=== PATIENT | female | born 1985 | race Caucasian/White ===

== ENCOUNTER 2021-02-28 10:30 | Outpatient (CLI) | payer OTHER, SELFPAY ==
--- NOTE | ~2021-02-28 | US_ITS ---
EXAMINATION: US breast RT limited HISTORY: Palpable abnormality in the upper inner quadrant right breast. TECHNIQUE: Limited high-resolution right breast ultrasound was performed. COMPARISON: 03/03/2016 FINDINGS: There is a 5 mm x 4 mm oval, circumscribed, parallel, hypoechoic mass with no posterior fea tures or internal vascularity at the 2:00 location 6 cm from the nipple. This is slightly increased i n size since the 2015 comparison. IMPRESSION: Probably benign right breast mass. Follow-up targeted right breast ultrasound in six months is recomm ended. BI-RADS category 3, probably benign findings. Reviewed, dictated and finalized at location A. 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 Follow-up targeted right breast ultrasound i n six months is recommended. BI-RADS category 3, probably benign findings.
== END 2021-02-28 10:31 | disposition home or self-care (01) ==
PROVIDERS: PCP Family Medicine; Visit Provider Family Medicine
DX: N63.0 Unspecified lump in unspecified breast (principal); R92.8 Other abnormal and inconclusive findings on diagnostic imaging of breast
CPT/HCPCS: 76642

== ENCOUNTER 2021-10-27 11:48 | Outpatient (CLI) | payer OTHER, SELFPAY ==
--- NOTE | ~2021-10-27 | US_ITS ---
EXAMINATION: US breast BI limited HISTORY: Six-month follow-up for probably benign right breast mass and palpable lump of the upper out er left breast. TECHNIQUE: Limited bilateral breast ultrasound was performed. COMPARISON: 02/28/2021 FINDINGS: There is a stable 5 mm x 2 mm oval, circumscribed, parallel, hypoechoic mass with no synthetic cloth binding cutter ior features or internal vascularity at the 2:00 location 6 cm from the nipple. A 6 mm simple cyst is noted at the 2:00 location 6 cm from the nipple. There is a 6 mm cyst at the 2:00 location 6 cm from the nipple in the left breast corresponding to the palpable abnormality. IMPRESSION: Stable, probably benign right breast mass. Follow-up target right breast ultrasound in six months is recommended. BI-RADS category 3, probably benign findings. Reviewed, dictated and finalized at location A. IMPRESSION: Stable, probably benign right breast mass. Follow-up target right breast ultras ound in six months is recommended. BI-RADS category 3, probably benign findings.
== END 2021-10-27 11:49 | disposition home or self-care (01) ==
PROVIDERS: PCP Family Medicine; Visit Provider Family Medicine
DX: R92.8 Other abnormal and inconclusive findings on diagnostic imaging of breast (principal)
CPT/HCPCS: 76642

== ENCOUNTER 2023-06-10 12:23 | Emergency (ER) | payer OTHER, SELFPAY ==
--- NOTE | 2023-06-10 12:25 | ECG_ITS ---
Measurements Intervals [place] Rate: 59 P: 66 UT: 139 QRS: 58 QRSD: 78 T: 43 QT: 420 QTc: 418 Interpretive Statements SINUS BRADYCARDIA WITH SINUS ARRHYTHMIA WITHIN NORMAL LIMITS NO PREVIOUS ECG AVAILABLE FOR COMPARISON Electronically Signed On 06-10-2023 18:28:13 DEGREASER by Korey Beard M.D.
[2023-06-10 12:32] VITALS: BP 116/61; PULSE 57; TEMP 36.4; O2SAT 100
--- NOTE | 2023-06-10 12:55 | PC.NURSE ---
PT LEFT D/T WAIT TIME, UNWILLING TO WAIT, IRRITABLE ON EXIT FROM ED
== END 2023-06-10 13:01 | disposition left against medical advice (07) ==
PROVIDERS: Emergency Provider Emergency Medicine; PCP Family Medicine
DX: R07.9 Chest pain, unspecified (principal)
CPT/HCPCS: 93005; 99199